=== PATIENT | female | born 1950 | race Caucasian/White ===

== ENCOUNTER 2017-12-13 06:10 | Day surgery (SDC) | payer OTHER | END 2017-12-13 12:00 | disposition home or self-care (01) | LOC: AMB-ENDOS 06:10 | DX: D12.2 Benign neoplasm of ascending colon (principal); K57.30 Diverticulosis of large intestine without perforation or abscess without bleeding; K64.1 Second degree hemorrhoids; D12.5 Benign neoplasm of sigmoid colon ==